=== PATIENT | male | born 1935 | race Caucasian/White ===

== ENCOUNTER 2016-12-27 05:14 | Day surgery (SDC) | payer MEDICARE, OTHER ==
[~2016-12-27] VITALS: Ht 157.5 cm; Wt 52.2 kg
[2016-12-27] VITALS (7 sets, daily range): BP systolic 110–135; BP diastolic 65–79
[~2016-12-27 05:14] MED LIST: AMLODIPINE BESY10 MG ORAL; ATORVASTATIN CA10 MG ORAL; BENICAR20 MG ORAL; BYSTOLIC5 MG ORAL; JANUMET 50-1,01 EACH ORAL; LOTEMAX1 DROP BOTH EYES; MECLIZINE HCL25 MG ORAL; METFORMIN HCL500 M1 ORAL; MURO-1283.5 GM OP; OMEPRAZOLE20 M2 ORAL
[2016-12-27] MEDS ORDERED: ceFAZolin 1gm in D5W 55ml IVP ONE (06:00)
[2016-12-27] MEDS ORDERED: celeBREX 200mg Cap **SURGERY PATIENTS ONLY ORAL ONE ×2 (06:00→06:16)
[2016-12-27] MEDS ORDERED: oxyCONTIN 20mg tab ORAL ONE (06:00)
[2016-12-27] MEDS ORDERED: Kenalog-40 1ml Vial ONE (06:21)
[2016-12-27] MEDS ORDERED: Morphine Sulfate PF 10 ML ONE (06:21)
[2016-12-27] MEDS ORDERED: Bupivacaine 0.25% Inj 30ml INJ ONE (06:22)
[2016-12-27] MEDS ORDERED: Lidocaine 1% 10mg/ml/Epi 0.005mg/ml 30ml vial INJ ONE (06:22)
[2016-12-27] MEDS ORDERED: Bupivacaine w/Epi 0.25% 30ml Vial INJ ONE (06:22)
[2016-12-27] MEDS ORDERED: Ketorolac 30mg Inj ONE (06:31)
[2016-12-27] MEDS ORDERED: EPINEPHrine 1mg/1ml Amp ONE (06:46)
[2016-12-27] MEDS ORDERED: Alfentanil 2ml Inj ONE (07:00)
[2016-12-27] MEDS ORDERED: Midazolam 2mg/2ml Inj ONE (07:00)
[2016-12-27] MEDS ORDERED: Lidocaine 1% MPF 10mg/ml 5ml ONE (07:00)
[2016-12-27] MEDS ORDERED: Propofol 10mg/ml 20ml IV ONE (07:00)
[2016-12-27] MEDS ORDERED: LR 1000ml ONE (07:00)
[2016-12-27] MEDS ORDERED: NS Irrig 2000ml IRRIG ONE (07:00)
--- NOTE | 2016-12-27 07:18 | Pre-Procedure Note/Attestation ---
Pre-Procedure Note/Attestation Complete Prior to Procedure Planned Procedure: left Procedure Narrative: knee arthroscopy, medial menisectomy Indications for Procedure Pre-Operative Diagnosis: left knee medial meniscus tear Attestation I attest that I discussed the nature of the procedure; its benefits; risks and complications; and alternatives (and the risks and benefits of such alternatives ), prior to the procedure, with the patient (or the patient's legal patient account representative). I attest that, if there was a reasonable possibility of needing a blood transfusion, the patient (or the patient's legal patient account representative) was given the [facility] standardized written summary, pursuant to the [place] Blood Safety Act ([place] Health and Safety Code # 1645, as amended). I attest that I re-evaluated the patient just prior to the surgery and that there has been no change in the patient's H&P, except as documented below: OWEN CHATTERJEE December 27, 2016 07:18
--- NOTE | 2016-12-27 07:19 | Operative Note - PDOC ---
Operative Note Operative Note Pre-op Diagnosis: left knee medial meniscus tear Procedure: left knee medial menisectomy Post-op Diagnosis: same as pre-op plus Operative Findings: consistent w/pre-op dx studies Anesthesia: MAC Specimen: none Complications: none Condition: stable Estimated Blood Loss: none Implant(s) used?: No OWEN CHATTERJEE December 27, 2016 07:19
--- NOTE | 2016-12-27 07:28 | Anethesia Preoperative Eval ---
Anesthesia Pre-op PMH/ROS General Date of Evaluation: December 27, 2016 Time of Evaluation: 07:06 Anesthesiologist: Vesna ASA Score: ASA 3 Mallampati Score Class I : Soft palate, uvula, fauces, pillars visible Class II: Soft palate, uvula, fauces visible Class III: Soft palate, base of uvula visible Class IV: Only hard plate visible Mallampati Classification: Class II Surgeon: Napoleon Diagnosis: L Knee Pain Surgical Procedure: L Knee Arthroscopy Anesthesia History: none Social History: smoking Family History: no anesthesia problems Allergies: Coded Allergies: No Known Allergies (Unverified , 12/26/16) Medications: see eMAR Past Medical History Cardiovascular: Reports: HTN Endocrine: Reports: DM HEENT: Reports: cataract (L), cataract (R), glaucoma Anesthesia Pre-op Phys. Exam Physician Exam Last Vital Signs Date Time Temp Pulse Resp B/P Pulse Ox O2 Delivery O2 Flow Rate FiO2 12/27/16 05:49 97.9 72 20 132/79 99 Room Air Airway Exam Mallampati Score: Class II MO: limited ROM: limited Teeth: missing, intact, broken Anesthesia Pre-op A/P Risk Assessment & Plan Assessment: ASA 3 Plan: GA, BIS Status Change Before Surgery: No Pre-Antibiotics Dru Gram Ancef IV Given Within 1 Hr of Incision: Yes Time Given: 07:26 Memo Malagon MD December 27, 2016 07:28
[2016-12-27] MEDS ORDERED: LR 1000ml 1,000 ML IVLG SCH (07:36)
[2016-12-27] MEDS ORDERED: LORazepam Inj 2mg/ml 1ml IV PRN (07:45)
[2016-12-27] MEDS ORDERED: Midazolam 2mg/2ml Inj IVP PRN (07:45)
[2016-12-27] MEDS ORDERED: Meperidine 25mg/0.5ml Inj IV PRN (07:45)
[2016-12-27] MEDS ORDERED: Ketorolac 30mg Inj IV PRN (07:45)
[2016-12-27] MEDS ORDERED: fentaNYL 100 mcg/2 mL IV PRN (07:45)
[2016-12-27] MEDS ORDERED: Metoclopramide 10mg/2ml Inj IVP PRN (07:45)
[2016-12-27] MEDS ORDERED: DiphenhydrAMINE 50mg/ml Inj IVP PRN (07:45)
[2016-12-27] MEDS ORDERED: Norco 5mg/325mg tab ORAL PRN ×2 (07:45→14:01)
[2016-12-27] MEDS ORDERED: Hydromorphone 0.5mg/0.5ml inj IVP PRN (07:45)
[2016-12-27] MEDS ORDERED: Norco 7.5mg/325mg tab ORAL PRN (07:45)
[2016-12-27] MEDS ORDERED: Oxycodone/Acetaminophen 5-325 ORAL PRN (07:45)
[2016-12-27] MEDS ORDERED: Atropine Inj 1mg/10ml Syr IV PRN (07:45)
[2016-12-27] MEDS ORDERED: Ketorolac 60mg Inj IV PRN (07:45)
--- NOTE | 2016-12-27 07:45 | Immediate Post-Op Evaluation ---
Immediate Post-Op Evalulation Immediate Post-Op Evalulation Procedure: L Knee Arthroscopy Date of Evaluation: December 27, 2016 Time of Evaluation: 08:14 IV Fluids: 600 LR Blood Products: 0 Estimated Blood Loss: 3 Urinary Output: 0 Blood Pressure Systolic: 117 Blood Pressure Diastolic: 78 Pulse Rate: 74 Respiratory Rate: 16 O2 Sat by Pulse Oximetry: 100 Temperature (Fahrenheit): 97.2 Pain Score (1-10): 2 Nausea: No Vomiting: No Complications 0 Patient Status: awake, reacts, patent, extubated, none Hydration Status: adequate Dru Gram Ancef IV Given Within 1 Hr of Incision: Yes Time Given: 07:26 Memo Malagon MD December 27, 2016 07:45
--- NOTE | 2016-12-27 07:46 | 48 Hour Post Anesthesia Eval ---
Post Anesthesia Evaluation Procedure: L Knee Arthroscopy Date of Evaluation: December 27, 2016 Time of Evaluation: 10:34 Blood Pressure Systolic: 138 0: 72 Pulse Rate: 74 Respiratory Rate: 18 Temperature (Fahrenheit): 98.2 O2 Sat by Pulse Oximetry: 100 Airway: patent Nausea: No Vomiting: No Pain Intensity: 2 Hydration Status: adequate Cardiopulmonary Status: Stable Mental Status/LOC: patient returned to baseline Follow-up Care/Observations: 0 Post-Anesthesia Complications: 0 Follow-up care needed: ready to discharge Memo Malagon MD December 27, 2016 07:46
[2016-12-27] MEDS ORDERED: Duramorph PF 10mg/10ml amp EPIDUR ONE (11:00)
[2016-12-27] MEDS ORDERED: D5 1/2NS 1,000 ML IV SCH (14:01)
[2016-12-27] MEDS ORDERED: HYDROmorphone 1mg/ml Carpuject SUBQ PRN (14:01)
[2016-12-27] MEDS ORDERED: Tylenol #3 tab (300mg/30mg) ORAL PRN (14:01)
--- NOTE | 2016-12-27 18:02 | Operative Note - Dictated ---
DATE OF OPERATION: 12/27/2016 PREOPERATIVE DIAGNOSIS: Left knee medial meniscus tear. POSTOPERATIVE DIAGNOSES: 1. Left knee medial meniscus tear. 2. Left knee symptomatic medial plica. 3. 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 PROCEDURES: 1. Left knee arthroscopic partial medial meniscectomy. 2. Synovectomy of lateral patellofemoral compartment. 3. Gentle chondroplasty of patellofemoral compartment. SURGEON: Benson Bender M.D. ANESTHESIA: MAC. INDICATION FOR PROCEDURE: The patient is a pleasant 81-year-old gentleman with acute onset of left knee pain. The patient had MRI, which showed a lateral medial meniscal tear. Given acute nature of the symptoms and mechanical symptoms above, he elected to undergo left knee arthroscopic partial medial meniscectomy. Risks, limitations, expectations and complication of the procedure were discussed in detail. All questions addressed. DESCRIPTION OF PROCEDURE: An informed consent was obtained. The patient was taken to the operating room and placed under monitored anesthesia control. Left leg was prepped and draped in a sterile manner. Time-out was performed. A 0.25% Marcaine plain was injected into the left knee. Portal sites were injected with 1% lidocaine with epinephrine. Inferolateral stab incision was then made. Trocar was introduced into the knee joint. There was a medial plica that made it very difficult to get into the medial compartment. Therefore medial working portal was established,. Medial plica and this hypertrophic synovial tissue and the medial intercondylar notch was debrided better visualized medial knee compartment. Medial compartment was entered and there was a degenerative tear posterior horn of medial meniscus. Partial meniscectomy was performed. There is some grade 3 chondrosis in the posterior aspect of the medial femoral condyle. Intercondylar notch was entered. The ligamentum mucosa was debrided. ACL was probed and noted to be intact. Lateral compartment was entered free of any meniscal chondral damage. At this point, the camera was repositioned in the patellofemoral compartment and of note there was an area of chondral damage in the inferior aspect of the patella. Gentle chondroplasty was performed, but the cartilage was not articulating with the articular portion in the patellofemoral compartment with flexion and extension. At this point, the camera was removed. Portal sites was closed with 3-0 Monocryl sutures. Steri-Strips and a sterile dressing were applied. Intraarticular injection made with 0.25% Marcaine with epinephrine, 30 mg Toradol, and 5 mg of Duramorph, and 40 mL Kenalog was injected. Benson Bender M.D. DR: Vernon JOB#: [id number] CC: SALOME
== END 2016-12-27 10:15 | disposition home or self-care (01) ==
LOC: SUR 05:14
DX: M23.222 Derangement of posterior horn of medial meniscus due to old tear or injury, left knee (principal); M67.52 Plica syndrome, left knee; M94.9 Disorder of cartilage, unspecified; I10 Essential (primary) hypertension; E78.5 Hyperlipidemia, unspecified; K21.9 Gastro-esophageal reflux disease without esophagitis; K44.9 Diaphragmatic hernia without obstruction or gangrene; M19.90 Unspecified osteoarthritis, unspecified site; G47.00 Insomnia, unspecified; E11.9 Type 2 diabetes mellitus without complications; H40.9 Unspecified glaucoma; N40.0 Benign prostatic hyperplasia without lower urinary tract symptoms; K86.89 Other specified diseases of pancreas; K57.30 Diverticulosis of large intestine without perforation or abscess without bleeding; K64.9 Unspecified hemorrhoids; Z87.891 Personal history of nicotine dependence
CPT/HCPCS: 29881; 82962; 97161; J0171; J0690; J1885; J2250; J2274; J2405; J2704; J3301; J3490; J7120; 94003; 94150

== ENCOUNTER → 2017-01-09 | Outpatient (CLI) | payer MEDICARE, OTHER | END | disposition home or self-care (01) | LOC: VAS 12:21 | DX: S83.232A Complex tear of medial meniscus, current injury, left knee, initial encounter (principal); X58.XXXA Exposure to other specified factors, initial encounter; Y93.9 Activity, unspecified; Y92.9 Unspecified place or not applicable | CPT/HCPCS: 93971 ==